=== PATIENT | female | born 1990 | race Caucasian/White ===

== ENCOUNTER 2016-11-01 10:29 | Emergency (ER) | payer MEDICAID, OTHER ==
[~2016-11-01] VITALS: Ht 152.4 cm; Wt 80.0 kg
[2016-11-01 10:31] VITALS: BP 110/77; PULSE 95; RESP 16; TEMP 97.8; O2SAT 98
[2016-11-01] MEDS ORDERED: CEFD300C PO (10:49)
--- NOTE | 2016-11-01 10:56 | PD ---
HPI Chief Complaint: ENT Complaint Time Seen by Provider: 10:49 Travel History International Travel<30 days: No Contact w/Intl Traveler<30days: No Traveled to known affect area: No History of Present Illness HPI Patient's 26-year-old female presenting with nasal congestion and facial pressure. Facial pain and pressure along the right and the right ear is occasionally painful. This begun on for about 1.5 weeks and she felt she was improving until this morning when it acutely worsened. She has nasal congestion with only intermittent thick yellow rhinorrhea. She denies sore throat. She denies neck pain, lymphadenopathy, fever or chills. She denies cough. She denies fever. She denies current . PFSH Past Medical History Arthritis: No Asthma: Yes Autoimmune Disease: No Anxiety: No Depression: Yes Heart Rhythm Problems: No Cancer: No Cardiovascular Problems: No High Cholesterol: Yes Chest Pain: No Congestive Heart Failure: No COPD: No Cerebrovascular Accident: No Diabetes: No Diminished Hearing: No Endocrine: No Gastrointestinal Disorders: Yes (IBS) GERD: No Glaucoma: No Genitourinary: Yes (UTI) Hepatitis: No Hiatal Hernia: No Hypertension: No Immune Disorder: No Kidney Stones: Yes Musculoskeletal: Yes Neurologic: Yes (HEADACHES) Psychiatric: Yes (DEPRESSION) Reproductive: Yes (EXCESSIVE BLEEDING/PAIN) Respiratory: Yes (ASTHMA) Migraines: No Renal Failure: No Seizures: No Sleep Apnea: No Thyroid Disease: No Ulcer: No ?: Not Menopausal: No : 2 Para: 1 Miscarriage: 0 : 0 Ovarian Cysts: Yes Past Surgical History Abdominal Surgery: Yes (EXPL LAPAROSCOPY) Cardiac Surgery: No Ear Surgery: No Endocrine Surgery: No Eye Surgery: No Genitourinary Surgery: Yes (URETERAL STENT PLACEMENT, STENT REMOVAL 2015, LITHOTRIPSY) Gynecologic Surgery: Yes (laproscopic exploratory on ovary,hysterectomy) Hysterectomy: Yes Joint Replacement: No Oral Surgery: No Pacemaker: No Thoracic Surgery: No Other Surgery: Yes Social History Alcohol Use: Yes Tobacco Use: Yes (10/14 ppd ) Substance Use: No Allergies-Medications (Allergen,Severity, Reaction): Coded Allergies: Erythromycin (Verified Allergy, Severe, EYE DROPS; EYE SWELLING, 11/01/16) Neomycin (Verified Allergy, Severe, EARS ITCHING, FLAKING, 11/01/16) Phenergan (Verified Allergy, Severe, HALLUCINATIONS WITH I.V. FORM, ) Amoxil (Verified Allergy, Intermediate, NAUSEA WITH ORAL FORM, 11/01/16) Uncoded Allergies: ADHESIVE TAPE (Allergy, Severe, RASH, REDNESS, 12/09/15) Reported Meds & Prescriptions Reported Meds & Active Scripts Active No Active Prescriptions or Reported Medications Review of Systems General / Constitutional: No: Fever, Chills HENT: Positive: Rhinitis, Rhinorrhea, Congestion, Earache, No: Headaches, Sore Throat, Neck Stiffness, Neck Pain, Masses, Ear Discharge Respiratory: No: Cough, Shortness of Breath Hematologic/Lymphatic: No: Lymph Node Enlargement Physical Exam Narrative GENERAL: Well-developed and well-nourished adult female in no acute distress. SKIN: Warm and dry. Good turgor without tenting. HEAD: Normocephalic and atraumatic. EYES: PERRL bilaterally, 5mm. EOMI bilaterally. No injection or icterus present. No proptosis. Lids without edema or erythema. ENT: Bilateral ear canals are non-edematous/non-erythematous without otorrhea. Bilateral TMs have intact landmarks and without distortion, perforation, air- fluid level or erythema. Nasal mucosa erythematous and edematous with thin yellow discharge, septum intact and midline. Significantly reduced right maxillary transillumination. Buccal mucosa pink and moist. Oropharynx free of erythema, tonsillar hypertrophy, masses, swelling, asymmetry and exudates. Uvula midline and airway patent. NECK: Supple, no meningeal signs. Trachea midline, no JVD. No cervical or facial lymphadenopathy. CARDIOVASCULAR: Regular rate and rhythm without murmurs, rubs, clicks or gallops. Radial pulses 2+ bilaterally. RESPIRATORY: Clear to auscultation bilaterally with symmetrical rise and fall, no distress or use of accessory muscles. MUSCULOSKELETAL: No gait disturbances. Patient freely moving all four extremities spontaneously. Extremities without clubbing, cyanosis, or edema. No obvious deformities. NEUROLOGIC: CN II-XII grossly intact. Awake and alert. Motor grossly within normal limits. Normal speech. PSYCHIATRIC: Appropriate mood and affect; insight and judgment normal. Data Data Last Documented VS Vital Signs Date Time Temp Pulse Resp B/P Pulse Ox O2 Delivery O2 Flow Rate FiO2 11/01/16 10:31 97.8 95 16 110/77 98 MDM Medical Decision Making Medical Screen Exam Complete: Yes Emergency Medical Condition: Yes Differential Diagnosis sinusitis vs rhinitis vs otitis media vs EUD Narrative Course Patient is a 26-year-old female with history and physical suggestive of an acute right maxillary sinusitis, likely bacterial. She is afebrile and nontoxic appearing. Patient has allergy to many macrolides and has taken a prescription for Levaquin for "a cold "in the last month. She has intolerance to amoxicillin due to stomach upset but no allergy. As such we'll prescribe Omnicef which should provide appropriate coverage and hopefully will be well- tolerated.See discharge paperwork for further instructions. The plan was discussed with the patient who acknowledged their understanding and agreement. Reinforced the follow-up with primary care is critically important. Patient instructed on emergent conditions that should prompt return to ED. Diagnosis Primary Impression: Right maxillary sinusitis Patient Instructions: General Instructions, Sinusitis (ED) Additional Instructions: Take medication as prescribed OTC Mucinex and decongestants as needed OTC Tylenol or Ibuprofen for fever and discomfort Drink lots of fluid to help clear mucous/drainage and stay hydrated Follow up with PCP in 2 days Return to the ED for any acute worsening of symptoms Med/Other Pt SpecificInfo: Prescription(s) given Scripts Cefdinir 300 Mg Ayn166 Mg PO BID #20 CAP Ref 0 Prov:Roxann Castaneda MD 11/01/16 Disposition: 01 DISCHARGE HOME Condition: Stable Sundar Hicks III Nov 01, 2016 10:56
== END 2016-11-01 11:44 | disposition home or self-care (01) ==
LOC: NEPB 10:29
DX: J32.0 Chronic maxillary sinusitis (principal); F17.200 Nicotine dependence, unspecified, uncomplicated
CPT/HCPCS: 99283

== ENCOUNTER 2017-10-03 10:16 | Emergency (ER) | payer OTHER, MEDICAID ==
[~2017-10-03] VITALS: Ht 152.4 cm; Wt 77.2 kg
[~2017-10-03 10:16] MED LIST: CEFD300C PO
[2017-10-03 10:18] VITALS: BP 124/82; PULSE 79; RESP 12; TEMP 98.4; O2SAT 98
--- NOTE | 2017-10-03 10:45 | PD ---
HPI Chief Complaint: Skin Problem Time Seen by Provider: 10:41 Travel History International Travel<30 days: No Contact w/Intl Traveler<30days: No Traveled to known affect area: No History of Present Illness HPI 27-year-old female presents to the ED for evaluation of 1 week history of tender reddened area under the left axilla. Gradual onset. The patient thinks that it may have started as an ingrown hair. She's been treating at home with warm compresses with no improvement of symptoms. States that the area has been draining a small amount of pus. She denies fevers, chills, nausea, vomiting, limitations to range of motion of the arm, history of MRSA. PFSH Past Medical History Arthritis: No Asthma: Yes Autoimmune Disease: No Anxiety: No Depression: Yes Heart Rhythm Problems: No Cancer: No Cardiovascular Problems: No High Cholesterol: Yes Chest Pain: No Congestive Heart Failure: No COPD: No Cerebrovascular Accident: No Diabetes: Yes Diminished Hearing: No Endocrine: No Gastrointestinal Disorders: Yes (IBS) GERD: No Glaucoma: No Genitourinary: Yes (UTI) Hepatitis: No Hiatal Hernia: No Hypertension: No Immune Disorder: No Kidney Stones: Yes Musculoskeletal: Yes Neurologic: Yes (HEADACHES) Psychiatric: Yes (DEPRESSION) Reproductive: Yes (EXCESSIVE BLEEDING/PAIN) Respiratory: Yes (ASTHMA) Migraines: No Renal Failure: No Seizures: No Sleep Apnea: No Thyroid Disease: No Ulcer: No Menopausal: No : 2 Para: 1 Miscarriage: 0 : 0 Ovarian Cysts: Yes Past Surgical History Abdominal Surgery: Yes (EXPL LAPAROSCOPY) Cardiac Surgery: No Ear Surgery: No Endocrine Surgery: No Eye Surgery: No Genitourinary Surgery: Yes (URETERAL STENT PLACEMENT, STENT REMOVAL 2014, LITHOTRIPSY) Gynecologic Surgery: Yes (laproscopic exploratory on ovary,hysterectomy) Hysterectomy: Yes Joint Replacement: No Oral Surgery: No Pacemaker: No Thoracic Surgery: No Other Surgery: Yes Social History Alcohol Use: Yes Tobacco Use: Yes (10/14 ppd ) Substance Use: No Allergies-Medications (Allergen,Severity, Reaction): Coded Allergies: erythromycin base (Unverified Allergy, Severe, EYE DROPS; EYE SWELLING, ) neomycin (Unverified Allergy, Severe, EARS ITCHING, FLAKING, 05/25/17) promethazine (Unverified Allergy, Severe, HALLUCINATIONS WITH I.V. FORM, ) amoxicillin (Unverified Allergy, Intermediate, NAUSEA WITH ORAL FORM, 05/25) Uncoded Allergies: ADHESIVE TAPE (Allergy, Severe, RASH, REDNESS, 12/09/15) Reported Meds & Prescriptions Reported Meds & Active Scripts Active Clindamycin (Clindamycin HCl) 150 Mg Cap 450 Mg PO Q6H 7 Days Cefdinir 300 Mg Cap 300 Mg PO BID Review of Systems Except as stated in HPI: all other systems reviewed are Neg Physical Exam Narrative GENERAL: Well-nourished, well-developed white female in no acute distress. SKIN: Focused skin assessment warm/dry. SKIN: There is an indurated area in the left axilla which measures about 1 cm in diameter. No fluctuance. No pointing. Small amount of purulent drainage. There is a zone of inflammation around it but no lymphangitis. HEAD: Normocephalic. EYES: No scleral icterus. No injection or drainage. NECK: Supple, trachea midline. No JVD or lymphadenopathy. CARDIOVASCULAR: Regular rate and rhythm without murmurs, gallops, or rubs. RESPIRATORY: Breath sounds equal bilaterally. No accessory muscle use. GASTROINTESTINAL: Abdomen soft, non-tender, nondistended. MUSCULOSKELETAL: No cyanosis, or edema. BACK: Nontender without obvious deformity. No CVA tenderness. Data Data Last Documented VS Vital Signs Date Time Temp Pulse Resp B/P (MAP) Pulse Ox O2 Delivery O2 Flow Rate FiO2 10/03/17 10:59 10/03/17 10:18 98.4 79 12 98 Orders Orders Ed Discharge Order (10/03/17 10:53) Abscess Culture And Gram Stain (10/03/17 12:22) [facility] Medical Decision Making Medical Screen Exam Complete: Yes Emergency Medical Condition: Yes Differential Diagnosis Folliculitis says furuncle versus abscess versus cellulitis versus other Narrative Course 27-year-old female presents to the ED for evaluation of 1 week history of tender reddened area under the left axilla. The patient thinks that it may have started as an ingrown hair. States that the area has been draining a small amount of pus. She denies fevers, chills, nausea, vomiting, limitations to range of motion of the arm, history of MRSA. Patient afebrile on presentation. Physical exam consistent with folliculitis, possible early abscess. No fluctuance noted. She is prescribed clindamycin 450 mg 3 times a day 7 days. She is instructed to continue with warm compresses and provided a brief course of anti-inflammatories. We discussed reasons to return to the ED. She indicated understanding of the discharge instructions. She is stable and discharged home. Diagnosis Primary Impression: Furuncle of axilla Qualified Codes: L02.422 - Furuncle of left axilla Referrals: [facility] Patient Instructions: Furunculosis and Carbunculosis (ED), General Instructions Additional Instructions: Continue with application of moist compresses a few times a day. DO NOT SQUEEZE THE AREA. OTC pain medications as described on the label, as needed for pain. Take antibiotics as they're prescribed until every pill is gone. Follow-up with the speaker wirer if symptoms do not improve. Return to the ED for worsening symptoms or any urgent or emergent medical condition. Med/Other Pt SpecificInfo: Prescription(s) given Scripts Clindamycin (Clindamycin) 150 Mg Cap 450 MG PO Q6H for Infection for 7 Days, #84 CAP 0 Refills Prov: Sriram Williamson MD 10/03/17 Disposition: 01 DISCHARGE HOME Condition: Stable Melissa Carter Oct 03, 2017 10:45
[2017-10-03] MEDS ORDERED: CLIN150C14 PO (10:51)
== END 2017-10-03 11:01 | disposition home or self-care (01) ==
LOC: NEPD 10:16
DX: L02.422 Furuncle of left axilla (principal); F17.200 Nicotine dependence, unspecified, uncomplicated
CPT/HCPCS: 99283

== ENCOUNTER 2017-10-26 13:41 | Emergency (ER) | payer OTHER, MEDICAID ==
[~2017-10-26 13:41] MED LIST changes: +CLIN150C14 PO
[2017-10-26 13:42] VITALS: BP 117/84; PULSE 76; RESP 16; TEMP 98.7; O2SAT 99
[2017-10-26] MEDS ORDERED: PERM5CRE TOPICAL (16:05)
--- NOTE | 2017-10-26 16:06 | PD ---
HPI Chief Complaint: Skin Problem Time Seen by Provider: 15:05 Travel History International Travel<30 days: No Contact w/Intl Traveler<30days: No Traveled to known affect area: No History of Present Illness HPI This is a 27-year-old female who presents to the emergency department with 1 day of rash on her legs, constant, moderate severity, itchy, with no associated fevers or chills. She also reports that 3 weeks ago she had an abscess under her left armpit which drained pus. She was treated by her primary care physician. She no longer has any pus draining be continues to feel painful lump in her armpit. PFSH Past Medical History Arthritis: No Asthma: Yes Autoimmune Disease: No Anxiety: No Depression: Yes Heart Rhythm Problems: No Cancer: No Cardiovascular Problems: No High Cholesterol: Yes Chest Pain: No Congestive Heart Failure: No COPD: No Cerebrovascular Accident: No Diabetes: Yes Diminished Hearing: No Endocrine: No Gastrointestinal Disorders: Yes (IBS) GERD: No Glaucoma: No Genitourinary: Yes (UTI) Hepatitis: No Hiatal Hernia: No Hypertension: No Immune Disorder: No Kidney Stones: Yes Musculoskeletal: Yes Neurologic: Yes (HEADACHES) Psychiatric: Yes (DEPRESSION) Reproductive: Yes (EXCESSIVE BLEEDING/PAIN) Respiratory: Yes (ASTHMA) Migraines: No Renal Failure: No Seizures: No Sleep Apnea: No Thyroid Disease: No Ulcer: No ?: Not Menopausal: No : 2 Para: 1 Miscarriage: 0 : 0 Ovarian Cysts: Yes Past Surgical History Abdominal Surgery: Yes (EXPL LAPAROSCOPY) Cardiac Surgery: No Ear Surgery: No Endocrine Surgery: No Eye Surgery: No Genitourinary Surgery: Yes (URETERAL STENT PLACEMENT, STENT REMOVAL 2014, LITHOTRIPSY) Gynecologic Surgery: Yes (laproscopic exploratory on ovary,hysterectomy) Hysterectomy: Yes Joint Replacement: No Oral Surgery: No Pacemaker: No Thoracic Surgery: No Other Surgery: Yes Social History Alcohol Use: Yes Tobacco Use: Yes (10/14 ppd ) Substance Use: No Allergies-Medications (Allergen,Severity, Reaction): Coded Allergies: erythromycin base (Unverified Allergy, Severe, EYE DROPS; EYE SWELLING, ) neomycin (Unverified Allergy, Severe, EARS ITCHING, FLAKING, 10/26/17) promethazine (Unverified Allergy, Severe, HALLUCINATIONS WITH I.V. FORM, ) amoxicillin (Unverified Allergy, Intermediate, NAUSEA WITH ORAL FORM, 10/26) Uncoded Allergies: ADHESIVE TAPE (Allergy, Severe, RASH, REDNESS, 12/09/15) Reported Meds & Prescriptions Reported Meds & Active Scripts Active Clindamycin (Clindamycin HCl) 150 Mg Cap 450 Mg PO Q6H 7 Days Cefdinir 300 Mg Cap 300 Mg PO BID Review of Systems Except as stated in HPI: all other systems reviewed are Neg Physical Exam Narrative GENERAL: Well-appearing, no acute distress, nontoxic SKIN: SKIN: Tender lymph node in the left axilla with no surrounding erythema or induration. Erythematous papular rash in linear distribution on her lower extremities and on the toes. HEAD: Atraumatic. Normocephalic. ENT: No nasal bleeding or discharge. Moist mucous membranes MUSCULOSKELETAL: No obvious deformities. No clubbing. No cyanosis. No edema. NEUROLOGICAL: Awake and alert. No obvious cranial nerve deficits. Motor grossly within normal limits. Normal speech. PSYCHIATRIC: Appropriate mood and affect; insight and judgment normal. Data Data Last Documented VS Vital Signs Date Time Temp Pulse Resp B/P (MAP) Pulse Ox O2 Delivery O2 Flow Rate FiO2 10/26/17 13:42 98.7 76 16 117/84 (95) 99 MDM Medical Decision Making Medical Screen Exam Complete: Yes Emergency Medical Condition: Yes Differential Diagnosis Scabies, bedbugs, shingles, abscess, cellulitis Narrative Course This is a 27-year-old female who presents to the emergency department with an itchy rash on her legs as well as swelling in her left axilla. Her axillary swelling appears to be a lymph node which I suspect is reactive from her recent abscess but I don't appreciate any fluctuance or induration at this time and I don't think it warrants antibiotic therapy. Her rash on her lower extremities is concerning for scabies. She'll be treated with permethrin and was instructed to wash all of her bed sheets in hot water. Otherwise she is nontoxic appearing and is appropriate for outpatient management. Diagnosis Primary Impression: Bug bites Qualified Codes: W57.XXXA - Bitten or stung by nonvenomous insect and other nonvenomous arthropods, initial encounter Additional Impression: Lymphadenopathy Patient Instructions: General Instructions Additional Instructions: If you develops fever, chills, increasing redness or swelling of your arm pit return to the emergency room. Follow-up with your primary care physician if you 're not improving in 1 week. Med/Other Pt SpecificInfo: Prescription(s) given Scripts Permethrin Topical 5% (Permethrin Topical 5%) 5% Cream 1 APPLIC TOPICAL ONCE for Scabies, #1 TUBE 0 Refills Prov: Roxann Castaneda MD 10/26/17 Disposition: 01 DISCHARGE HOME Condition: Stable Roxann Castaneda MD Oct 26, 2017 16:06
== END 2017-10-26 16:20 | disposition home or self-care (01) ==
LOC: NEPA 13:41
DX: S80.861A Insect bite (nonvenomous), right lower leg, initial encounter (principal); S80.862A Insect bite (nonvenomous), left lower leg, initial encounter; R59.1 Generalized enlarged lymph nodes; W57.XXXA Bitten or stung by nonvenomous insect and other nonvenomous arthropods, initial encounter
CPT/HCPCS: 99283

== ENCOUNTER 2017-12-10 16:34 | Emergency (ER) | payer MEDICAID, OTHER ==
[~2017-12-10] VITALS: Ht 152.4 cm; Wt 74.0 kg
[~2017-12-10 16:34] MED LIST changes: +PERM5CRE TOPICAL
[2017-12-10 16:42] VITALS: BP 118/67; PULSE 89; RESP 18; TEMP 97.5; O2SAT 98
[2017-12-10] MEDS ORDERED: AMBI10TA PO (16:51)
[2017-12-10] MEDS ORDERED: BUSP5TAB PO (16:51)
[2017-12-10] MEDS ORDERED: SODIUM CHLOR 0.9% 1000 ML INJ 1,000 ML IV SCH (16:54)
[2017-12-10] MEDS ORDERED: SODIUM CHLORIDE 0.9% FLUSH 10 ML FLUSH IV FLUSH PRN (17:00)
[2017-12-10] MEDS ORDERED: KETOROLAC TROMETHAMINE 30 MG/ML (IVP) VIAL IVP ONE (17:00)
[2017-12-10 17:13] LABS: AUTOMATED NEUTROPHIL # 14.5 TH/MM3 (1.8-7.7); BASOPHIL # 0.3 TH/MM3 (0-0.2); BASOPHIL % 1.3 % (0.0-2.0); EOSINOPHIL # 0.3 TH/MM3 (0-0.4); EOSINOPHIL % 1.3 % (0.0-4.0); HEMATOCRIT 47.2 % (35.0-46.0); HEMOGLOBIN 15.6 GM/DL (11.6-15.3); LYMPH % 22.6 % (9.0-44.0); LYMPHOCYTE # 4.8 TH/MM3 (1.0-4.8); MEAN CELL VOLUME 85.3 FL (80.0-100.0); MEAN CORPUSCULAR HEMOGLOBIN 28.3 PG (27.0-34.0); MEAN CORPUSCULAR HGB CONC 33.1 % (32.0-36.0); MEAN PLATELET VOLUME 9.7 FL (7.0-11.0); MONO % 5.9 % (0.0-8.0); MONOCYTE # 1.2 TH/MM3 (0-0.9); NEUT % 68.9 % (16.0-70.0); PLATELET COUNT 283 TH/MM3 (150-450); RED BLOOD COUNT 5.53 MIL/MM3 (4.00-5.30); RED CELL DISTRIBUTION WIDTH 12.7 % (11.6-17.2); WHITE BLOOD COUNT 21.1 TH/MM3 (4.0-11.0)
[2017-12-10 17:17] LABS: BLOOD, URINE SMALL (NEG); GLUCOSE,URINE NEG (NEG); KETONE, URINE NEG (NEG); NITRITE,URINE NEG (NEG); PH, URINE 5.5 (5.0-8.5); URINE COLOR YELLOW (YELLW/STRAW); URINE LEUKOCYTE ESTERASE NEG (NEG)
[2017-12-10 17:22] LABS: CHLORIDE 103 MEQ/L (98-107); SODIUM (NA) 136 MEQ/L (136-145)
[2017-12-10 17:26] LABS: ALBUMIN 3.6 GM/DL (3.4-5.0); BICARBONATE 24.3 MEQ/L (21.0-32.0); CALCIUM 9.3 MG/DL (8.5-10.1); GLUCOSE,RANDOM 130 MG/DL (74-106)
[2017-12-10 17:27] LABS: BLOOD UREA NITROGEN 10 MG/DL (7-18)
[2017-12-10 17:29] LABS: ALT (GPT) 44 U/L (10-53); AST (GOT) 32 U/L (15-37); CREATININE 0.79 MG/DL (0.50-1.00); GLOMERULAR FILTRATION RATE 86 ML/MIN (>89)
[2017-12-10 17:31] LABS: TOTAL BILIRUBIN ADULT 0.1 MG/DL (0.2-1.0); TOTAL PROTEIN 8.1 GM/DL (6.4-8.2)
[2017-12-10 17:31] LABS: BILIRUBIN, URINE NEG (NEG)
[2017-12-10 17:32] LABS: ALKALINE PHOSPHATASE 133 U/L (45-117)
--- NOTE | 2017-12-10 17:35 | PD ---
HPI Chief Complaint: Abdominal Pain Time Seen by Provider: 16:48 Travel History International Travel<30 days: No Contact w/Intl Traveler<30days: No Traveled to known affect area: No History of Present Illness HPI Patient was seen and examined in the presence of a nurse at all times This is a 27-year-old female who presents for abdominal pain. She states about half an hour ago, she developed pain in the suprapubic region. No associated fever, chills, nausea, vomiting, diarrhea. No urinary urgency, frequency, dysuria, hematuria. She has had a partial hysterectomy in the past. She states that she has had similar pain multiple times in the past. She has had exploratory laparotomies. She states that it is unclear what is causing her pain. No prior treatment today for the pain. Onset gradual. Aggravated by touch. Patient denies any vaginal discharge or bleeding. She states that she had unprotected sex about 3 weeks ago with a new partner. PFSH Past Medical History Arthritis: No Asthma: Yes Autoimmune Disease: No Anxiety: Yes Depression: Yes Heart Rhythm Problems: No Cancer: No Cardiovascular Problems: No High Cholesterol: Yes Chest Pain: No Congestive Heart Failure: No COPD: No Cerebrovascular Accident: No Diabetes: Yes Patient Takes Glucophage: No Diminished Hearing: No Endocrine: No Gastrointestinal Disorders: Yes (IBS) GERD: No Glaucoma: No Genitourinary: Yes (UTI) Hepatitis: No Hiatal Hernia: No Hypertension: No Immune Disorder: No Kidney Stones: Yes Medical other: No Musculoskeletal: Yes Neurologic: Yes (HEADACHES) Psychiatric: Yes (DEPRESSION) Reproductive: Yes (EXCESSIVE BLEEDING/PAIN) Respiratory: Yes (ASTHMA) Immunizations Current: Yes Migraines: No Renal Failure: No Seizures: No Sleep Apnea: No Thyroid Disease: No Ulcer: No ?: Not Menopausal: No : 2 Para: 1 Miscarriage: 0 : 0 Ovarian Cysts: Yes Past Surgical History Abdominal Surgery: Yes (EXPL LAPAROSCOPY) Cardiac Surgery: No Ear Surgery: No Endocrine Surgery: No Eye Surgery: No Genitourinary Surgery: Yes (URETERAL STENT PLACEMENT, STENT REMOVAL 2015, LITHOTRIPSY) Gynecologic Surgery: Yes (laproscopic exploratory on ovary) Hysterectomy: Yes (PARTIAL) Joint Replacement: No Oral Surgery: No Pacemaker: No Thoracic Surgery: No Other Surgery: Yes Social History Alcohol Use: Yes (COUPLE TIMES PER MONTH) Tobacco Use: Yes (1/2 PPD) Substance Use: No Allergies-Medications (Allergen,Severity, Reaction): Coded Allergies: erythromycin base (Unverified Allergy, Severe, EYE DROPS; EYE SWELLING, 12/10/17) neomycin (Unverified Allergy, Severe, EARS ITCHING, FLAKING, 12/10/17) promethazine (Unverified Allergy, Severe, HALLUCINATIONS WITH I.V. FORM, ) amoxicillin (Unverified Allergy, Intermediate, NAUSEA WITH ORAL FORM, ) Uncoded Allergies: ADHESIVE TAPE (Allergy, Severe, RASH, REDNESS, 12/09/15) Reported Meds & Prescriptions Reported Meds & Active Scripts Active Naprosyn (Naproxen) 500 Mg Tab 500 Mg PO BID PRN [place] (Hydrocodone-Acetaminophen) 5 Mg-325 Mg Tab 1 Tab PO Q6H PRN Reported Buspirone (Buspirone HCl) 5 Mg Tab 5 Mg PO BID Ambien (Zolpidem Tartrate) 10 Mg Tab 10 Mg PO HS PRN Review of Systems Except as stated in HPI: all other systems reviewed are Neg Physical Exam Narrative GENERAL: Alert, well nourished, well appearing patient resting on the bed. Vital Signs reviewed SKIN: Focused skin assessment warm/dry. HEAD: Atraumatic. Normocephalic. EYES: Pupils equal and round. No scleral icterus. No injection or drainage. ENT: No nasal bleeding or discharge. Mucous membranes pink and moist. Posterior oropharynx without erythema, edema, exudate. Uvula is midline NECK: Trachea midline. No JVD. Spontaneous, painless full range of motion with no meningismus CARDIOVASCULAR: Regular rate and rhythm. No murmur appreciated. Extremities warm and well perfused with bounding peripheral pulses RESPIRATORY: No accessory muscle use. Clear to auscultation. Breath sounds equal bilaterally. Breathing easily and speaking in full sentences GASTROINTESTINAL: Abdomen soft, tender in suprapubic region, nondistended. Normal bowel sounds. No rigid, rebound Pelvic exam performed in presence of nurse Shavon: Speculum and bimanual exams were performed. There is a small amount of white discharge, likely physiologic , in vaginal vault. Positive right adnexal tenderness without right adnexal mass appreciated. No left adnexal tenderness. MUSCULOSKELETAL: No obvious deformities. No clubbing. No cyanosis. No edema. Compartments are soft NEUROLOGICAL: Awake and alert. No obvious cranial nerve deficits. Motor grossly within normal limits. Normal speech. Sensation intact. Normal gait Data Data Last Documented VS Vital Signs Date Time Temp Pulse Resp B/P (MAP) Pulse Ox O2 Delivery O2 Flow Rate FiO2 12/10/17 20:10 98.6 86 20 119/86 (97) 98 12/10/17 18:55 Room Air Orders Orders Urinalysis - C+S If Indicated (12/10/17 16:42) Complete Blood Count With Diff (12/10/17 16:54) Comprehensive Metabolic Panel (12/10/17 16:54) Lipase (12/10/17 16:54) Ct Abd/Pel W/O Iv Contrast (12/10/17 16:54) Iv Access Insert/Monitor (12/10/17 16:54) Sodium Chlor 0.9% 1000 Ml Inj (Ns 1000 M (12/10/17 16:54) Sodium Chloride 0.9% Flush (Ns Flush) (12/10/17 17:00) Ketorolac Inj (Toradol Inj) (12/10/17 17:00) Gc And Chlamydia Pcr (12/10/17 17:50) Wet Prep Profile (12/10/17 17:50) Azithromycin Powd Pack (Zithromax Powd P (12/10/17 18:15) Ceftriaxone Inj (Rocephin Inj) (12/10/17 18:15) Lidocaine 1% Inj (50 Ml) (Xylocaine 1% I (12/10/17 18:15) Morphine Inj (Morphine Inj) (12/10/17 18:30) Ondansetron Inj (Zofran Inj) (12/10/17 18:30) Lidocaine Pf 1% Inj (Xylocaine-Mpf 1% In (12/10/17 18:44) Azithromycin Powd Pack (Zithromax Powd P (12/10/17 18:45) Us Pelvis Comp W Dop Transvag (12/10/17 17:50) Ed Discharge Order (12/10/17 19:30) Labs Laboratory Tests Test 12/10/17 17:00 12/10/17 17:05 12/10/17 18:10 Urine Color YELLOW Urine Turbidity CLOUDY Urine pH 5.5 Urine Specific [place] GREATER/EQUAL 1.030 Urine Protein TRACE mg/dL Urine Glucose (UA) NEG mg/dL Urine Ketones NEG mg/dL Urine Occult Blood SMALL Urine Nitrite NEG Urine Bilirubin NEG Urine Urobilinogen 0.2 MG/DL Urine Leukocyte Esterase NEG Urine RBC 4-9 /hpf Urine WBC 3-5 /hpf Urine Squamous Epithelial Cells 0-5 /hpf Urine Calcium Oxalate Crystals FEW /hpf Urine Uric Acid Crystals MANY /hpf Microscopic Urinalysis Comment CULT NOT INDICATED White Blood Count 21.1 TH/MM3 Red Blood Count 5.53 MIL/MM3 Hemoglobin 15.6 GM/DL Hematocrit 47.2 % Mean Corpuscular Volume 85.3 FL Mean Corpuscular Hemoglobin 28.3 PG Mean Corpuscular Hemoglobin Concent 33.1 % Red Cell Distribution Width 12.7 % Platelet Count 283 TH/MM3 Mean Platelet Volume 9.7 FL Neutrophils (%) (Auto) 68.9 % Lymphocytes (%) (Auto) 22.6 % Monocytes (%) (Auto) 5.9 % Eosinophils (%) (Auto) 1.3 % Basophils (%) (Auto) 1.3 % Neutrophils # (Auto) 14.5 TH/MM3 Lymphocytes # (Auto) 4.8 TH/MM3 Monocytes # (Auto) 1.2 TH/MM3 Eosinophils # (Auto) 0.3 TH/MM3 Basophils # (Auto) 0.3 TH/MM3 CBC Comment DIFF FINAL Differential Comment Blood Urea Nitrogen 10 MG/DL Creatinine 0.79 MG/DL Random Glucose 130 MG/DL Total Protein 8.1 GM/DL Albumin 3.6 GM/DL Calcium Level 9.3 MG/DL Alkaline Phosphatase 133 U/L Aspartate Amino Transf (AST/SGOT) 32 U/L Alanine Aminotransferase (ALT/SGPT) 44 U/L Total Bilirubin 0.1 MG/DL Sodium Level 136 MEQ/L Potassium Level 4.2 MEQ/L Chloride Level 103 MEQ/L Carbon Dioxide Level 24.3 MEQ/L Anion Gap 9 MEQ/L Estimat Glomerular Filtration Rate 86 ML/MIN Lipase 102 U/L Clue Cells (Wet Prep) NONE SEEN Vaginal Trichomonas (Wet Prep) NONE SEEN Vaginal Yeast (Wet Prep) NONE SEEN Chlamydia trachomatis DNA (PCR) NOT DETECTED Neisseria gonorrhoeae DNA (PCR) NOT DETECTED MDM Medical Decision Making Medical Screen Exam Complete: Yes Emergency Medical Condition: Yes Medical Record Reviewed: Yes Interpretation(s) Pelvic US: Complex cystic lesion within the right ovary measuring 2.4 x 1.8 x 2.7 cm. Nonvisualization of the left ovary transabdominally. Some free fluid within the cul-de-sac. Status post hysterectomy. CT A/P: 1. Bilateral nonobstructing renal calculi. 2. Small amount of free fluid in the pelvis adjacent to the right ovary. 3. Ovarian cyst Laboratory Tests Test 12/10/17 17:00 12/10/17 17:05 12/10/17 18:10 Urine Color YELLOW Urine Turbidity CLOUDY Urine pH 5.5 Urine Specific [place] GREATER/EQUAL 1.030 Urine Protein TRACE mg/dL Urine Glucose (UA) NEG mg/dL Urine Ketones NEG mg/dL Urine Occult Blood SMALL Urine Nitrite NEG Urine Bilirubin NEG Urine Urobilinogen 0.2 MG/DL Urine Leukocyte Esterase NEG Urine RBC 4-9 /hpf Urine WBC 3-5 /hpf Urine Squamous Epithelial Cells 0-5 /hpf Urine Calcium Oxalate Crystals FEW /hpf Urine Uric Acid Crystals MANY /hpf Microscopic Urinalysis Comment CULT NOT INDICATED White Blood Count 21.1 TH/MM3 Red Blood Count 5.53 MIL/MM3 Hemoglobin 15.6 GM/DL Hematocrit 47.2 % Mean Corpuscular Volume 85.3 FL Mean Corpuscular Hemoglobin 28.3 PG Mean Corpuscular Hemoglobin Concent 33.1 % Red Cell Distribution Width 12.7 % Platelet Count 283 TH/MM3 Mean Platelet Volume 9.7 FL Neutrophils (%) (Auto) 68.9 % Lymphocytes (%) (Auto) 22.6 % Monocytes (%) (Auto) 5.9 % Eosinophils (%) (Auto) 1.3 % Basophils (%) (Auto) 1.3 % Neutrophils # (Auto) 14.5 TH/MM3 Lymphocytes # (Auto) 4.8 TH/MM3 Monocytes # (Auto) 1.2 TH/MM3 Eosinophils # (Auto) 0.3 TH/MM3 Basophils # (Auto) 0.3 TH/MM3 CBC Comment DIFF FINAL Differential Comment Blood Urea Nitrogen 10 MG/DL Creatinine 0.79 MG/DL Random Glucose 130 MG/DL Total Protein 8.1 GM/DL Albumin 3.6 GM/DL Calcium Level 9.3 MG/DL Alkaline Phosphatase 133 U/L Aspartate Amino Transf (AST/SGOT) 32 U/L Alanine Aminotransferase (ALT/SGPT) 44 U/L Total Bilirubin 0.1 MG/DL Sodium Level 136 MEQ/L Potassium Level 4.2 MEQ/L Chloride Level 103 MEQ/L Carbon Dioxide Level 24.3 MEQ/L Anion Gap 9 MEQ/L Estimat Glomerular Filtration Rate 86 ML/MIN Lipase 102 U/L Clue Cells (Wet Prep) NONE SEEN Vaginal Trichomonas (Wet Prep) NONE SEEN Vaginal Yeast (Wet Prep) NONE SEEN Differential Diagnosis Ovarian cyst, ovarian torsion, PID, UTI, nephrolithiasis Narrative Course IV access was established. Labs, imaging were performed. Pelvic exam was performed, patient has right adnexal tenderness. No CMT. Patient was given Rocephin and azithromycin to cover gonorrhea and chlamydia. She states that she has taken azithromycin with no difficulty despite her being allergic to erythromycin. Patient was given Toradol and Morphine with improvement in pain. Patient's work up revealed right ovarian cyst. I feel this is the most likely cause of her pain, rather than PID. Patient states she often has an elevated WBC count. She is afebrile. I reviewed the results of the workup with the patient. Plan for discharge with Naprosyn, [place], supportive care and close outpatient follow-up with her [place] planning manager in 3 days. Patient understands the importance of close outpatient follow-up. She understands she may require further testing and treatment as an outpatient. She understands strict return indications. She is comfortable with this plan and eager to go home. 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 Use [place] as needed for severe pain. No alcohol or driving after this medication. Use warm compresses as directed. Follow-up with [facility] planning manager in 3 days for recheck. You may require further testing and treatment as an outpatient. Med/Other Pt SpecificInfo: Prescription(s) given Scripts Naproxen (Naprosyn) 500 Mg Tab 500 MG PO BID Y for PAIN LESS THAN 5 ON SCALE, #10 TAB 0 Refills Prov: Julia Hernandez MD 12/10/17 Hydrocodone-Acetaminophen ([place]) 5 Mg-325 Mg Tab 1 TAB PO Q6H Y for PAIN GREATER THAN 5, #12 TAB 0 Refills Prov: Julia Hernandez MD 12/10/17 Disposition: 01 DISCHARGE HOME Condition: Stable Julia Hernandez MD Dec 10, 2017 17:35
--- NOTE | 2017-12-10 17:36 | RADRPT ---
EXAM DATE/TIME: 12/10/2017 17:22 [facility] COMPARISON: CT ABDOMEN & PELVIS W CONTRAST, March 04, 2016, 14:38. INDICATIONS : Lower abdominal pain. Nausea. ORAL CONTRAST: No oral contrast ingested. RADIATION DOSE: 17.27 CTDIvol (mGy) MEDICAL HISTORY : Renal calculi. Diabetes mellitus type 2. Inflammatory bowel disease.Asthma. SURGICAL HISTORY : Hysterectomy. Lithotripsy. ENCOUNTER: Initial ACUITY: 1 day PAIN SCALE: 8/10 LOCATION: Bilateral lower quadrant TECHNIQUE: Volumetric scanning of the abdomen and pelvis was performed. Using automated exposure control and ad justment of the mA and/or kV according to patient size, radiation dose was kept as low as reasonably achievable to obtain optimal diagnostic quality images. DICOM format image data is available electro nically for review and comparison. FINDINGS: Lung bases are clear. The osseous structures are intact. Visualized portions of liver demonstrate mil d hepatic steatosis. Spleen, pancreas, adrenals are unremarkable. Punctate nonobstructing left lower pole renal calculus. There are multiple nonobstructing right renal calculi including a 2.4 mm lower p ole calculus on image 53, 5.9 mm calculus at the midpole right kidney on image 47 and a 2 mm right up per pole stone on image 39. No hydronephrosis or ureteral stones. Urinary bladder is unremarkable. Th e patient is status post hysterectomy. There is a small amount of fluid just above the urinary bladde r. No evidence of bowel obstruction. The appendix is normal. No adenopathy or aneurysm. Left ovary un remarkable. Right ovarian cyst suspected measuring 2.9 cm. CONCLUSION: 1. Bilateral nonobstructing renal calculi. 2. Small amount of free fluid in the pelvis adjacent to the right ovary. 3. Ovarian cyst Heriberto Henry MD on December 10, 2017 at 17:33 Board Certified Radiologist. This report was verified electronically.
[2017-12-10 17:37] LABS: URIC ACID CRYSTALS, URINE MANY /hpf
[2017-12-10 17:38] LABS: SQUAMOUS EPITHELIAL CELL URINE 0-5 /hpf (0-5)
[2017-12-10 17:40] LABS: CALCIUM OXALATE CRYSTALS,URINE FEW /hpf
[2017-12-10] MEDS ORDERED: LIDOCAINE HCL 1% 50 ML VIAL IM ONE (18:15)
[2017-12-10] MEDS ORDERED: AZITHROMYCIN PWD FOR SUSP 1 GM PACKET PO ONE ×2 (18:15→18:45)
[2017-12-10] MEDS ORDERED: cefTRIAXone 250 MG VIAL IM ONE (18:15)
[2017-12-10] MEDS ORDERED: MORPHINE SULFATE 4 MG/ML INJ IV PUSH ONE (18:30)
[2017-12-10] MEDS ORDERED: ONDANSETRON HCL 4 MG/2 ML VIAL IV PUSH ONE (18:30)
[2017-12-10] MEDS ORDERED: LIDOCAINE HCL 1% PF 30 ML VIAL ONE (18:44)
[2017-12-10 18:55] VITALS: BP 110/76; PULSE 84; RESP 18; O2SAT 99
[2017-12-10 19:09] VITALS: BP 117/87; PULSE 87; RESP 20; O2SAT 99
--- NOTE | 2017-12-10 19:16 | RADRPT ---
EXAM DATE/TIME: 12/10/2017 18:19 [facility] COMPARISON: No previous studies available for comparison. INDICATIONS : Right pelvic pain for 1 day. MEDICAL HISTORY : Hypercholesterolemia. Glasses. Asthma. Ovarian cysts. Urinary tract infection. Kidney stones. Sco liosis. Diabetes. Depression. Anxiety. Nausea. Excessive bleeding/pain. SURGICAL HISTORY : Hysterectomy. Exploratory laparoscopy. Ureteral stent. Lithotripsy. ENCOUNTER: Initial ACUITY: 1 day PAIN SCORE: 8/10 LOCATION: Bilateral pelvis MEASUREMENTS: LEFT OVARY: 4.0 x 2.0 x 2.7 cm UTERUS: Surgically absent RIGHT OVARY: 4.2 x 2.3 x 2.9 cm FINDINGS: UTERUS: Status post hysterectomy. RIGHT OVARY: There is a complex cystic lesion arising from the right ovary measuring 2.4 x 1.8 x 2.7 cm. No ovaria n torsion is noted. LEFT OVARY: Left ovary is not visualized transabdominally. MISCELLANEOUS: Some free fluid is noted within the cul-de-sac. CONCLUSION: Complex cystic lesion within the right ovary measuring 2.4 x 1.8 x 2.7 cm. Nonvisualization of the le ft ovary transabdominally. Some free fluid within the cul-de-sac. Status post hysterectomy. Sriram Bishop MD on December 10, 2017 at 19:12 Board Certified Radiologist. This report was verified electronically.
[2017-12-10] MEDS ORDERED: NAPR500 PO (19:26)
[2017-12-10] MEDS ORDERED: NORC5TAB PO (19:26)
[2017-12-10 20:10] VITALS: BP 119/86; TEMP 98.6
== END 2017-12-10 20:33 | disposition home or self-care (01) ==
LOC: PHED 16:34
DX: N83.201 Unspecified ovarian cyst, right side (principal); F17.200 Nicotine dependence, unspecified, uncomplicated
CPT/HCPCS: 74176; 76830; 76856; 80053; 81001; 83690; 85025; 87210; 87491; 87591; 93975; 96361; 96372; 96374; 96375; 99285; J0696; J1885; J2270; J2405; J7030

== ENCOUNTER 2018-02-23 04:35 | Emergency (ER) | payer OTHER ==
[~2018-02-23] VITALS: Ht 152.4 cm; Wt 74.9 kg
[~2018-02-23 04:35] MED LIST changes: +AMBI10TA PO; +BUSP5TAB PO; -CEFD300C PO; -CLIN150C14 PO; +NAPR500 PO; +NORC5TAB PO; -PERM5CRE TOPICAL
[2018-02-23 04:43] VITALS: BP 120/86; PULSE 98; RESP 18; TEMP 97.8; O2SAT 98
[2018-02-23] MEDS ORDERED: RESP: ALBUTEROL 2.5 MG/IPRATROPIUM 0.5 MG NEB (SCH) NEB ONE (05:15)
[2018-02-23] MEDS ORDERED: predniSONE 50 MG TAB PO ONE (05:15)
--- NOTE | 2018-02-23 05:15 | PD ---
HPI Chief Complaint: Cold / Flu Symptoms Time Seen by Provider: 05:08 Travel History International Travel<30 days: No Contact w/Intl Traveler<30days: No Traveled to known affect area: No History of Present Illness HPI 28-year-old female presents to the emergency department by private transportation for complaint of shortness of breath and chest tightness with heaviness since yesterday. Patient states history of asthma with recurrent episodes of bronchitis. Symptoms remind her of bronchitis. No fever has had cough productive of yellow-green sputum. Patient denies status post hysterectomy in 2015. No other concerns or complaints at this time. Patient does not have an inhaler. Patient does smoke cigarettes. PFSH Past Medical History Narrative Medical Asthma anxiety depression diabetes dyslipidemia hysterectomy; tobacco use; nursing notes reviewed Arthritis: No Asthma: Yes Autoimmune Disease: No Anxiety: Yes Depression: Yes Heart Rhythm Problems: No Cancer: No Cardiovascular Problems: No High Cholesterol: Yes Chest Pain: No Congestive Heart Failure: No COPD: No Cerebrovascular Accident: No Diabetes: Yes Patient Takes Glucophage: No Diminished Hearing: No Endocrine: No Gastrointestinal Disorders: Yes (IBS) GERD: No Glaucoma: No Genitourinary: Yes (UTI) Hepatitis: No Hiatal Hernia: No Hypertension: No Immune Disorder: No Kidney Stones: Yes Musculoskeletal: Yes Neurologic: Yes (HEADACHES) Psychiatric: Yes (DEPRESSION) Reproductive: Yes (EXCESSIVE BLEEDING/PAIN) Respiratory: Yes (ASTHMA) Immunizations Current: Yes Migraines: No Renal Failure: No Seizures: No Sleep Apnea: No Thyroid Disease: No Ulcer: No Influenza Vaccination: No ?: Not LMP: Nov 2015 Menopausal: No : 2 Para: 1 Miscarriage: 0 : 0 Ovarian Cysts: Yes Past Surgical History Abdominal Surgery: Yes (EXP LAP) Cardiac Surgery: No Ear Surgery: No Endocrine Surgery: No Eye Surgery: No Genitourinary Surgery: Yes (URETERAL STENT PLACEMENT, STENT REMOVAL 2014, LITHOTRIPSY) Gynecologic Surgery: Yes (laproscopic exploratory on ovary) Hysterectomy: Yes (PARTIAL) Joint Replacement: No Oral Surgery: No Pacemaker: No Thoracic Surgery: No Other Surgery: Yes Social History Alcohol Use: Yes (COUPLE TIMES PER MONTH) Tobacco Use: Yes (STATED 02/23/18: "2 PACKS PER WEEK") Substance Use: No Allergies-Medications (Allergen,Severity, Reaction): Coded Allergies: erythromycin base (Unverified Allergy, Severe, EYE DROPS; EYE SWELLING, ) neomycin (Unverified Allergy, Severe, EARS ITCHING, FLAKING, 02/23/18) promethazine (Unverified Allergy, Severe, HALLUCINATIONS WITH I.V. FORM, ) amoxicillin (Unverified Allergy, Intermediate, NAUSEA WITH ORAL FORM, 02/23) Uncoded Allergies: ADHESIVE TAPE (Allergy, Severe, RASH, REDNESS, 12/09/15) Reported Meds & Prescriptions Reported Meds & Active Scripts Active Reported Buspirone (Buspirone HCl) 5 Mg Tab 5 Mg PO BID Ambien (Zolpidem Tartrate) 10 Mg Tab 10 Mg PO HS PRN Review of Systems Except as stated in HPI: all other systems reviewed are Neg Physical Exam Narrative GENERAL: Well-developed well-nourished female no acute distress no respiratory distress; room air O2 saturation 98% SKIN: Warm and dry. HEAD: Normocephalic. EYES: No scleral icterus. No injection or drainage. NECK: Supple, trachea midline. No JVD or lymphadenopathy. CARDIOVASCULAR: Regular rate and rhythm without murmurs, gallops, or rubs. RESPIRATORY: Breath sounds equal bilaterally. No accessory muscle use. GASTROINTESTINAL: Abdomen soft, non-tender, nondistended. MUSCULOSKELETAL: No cyanosis, or edema. BACK: Nontender without obvious deformity. No CVA tenderness. Data Data Last Documented VS Vital Signs Date Time Temp Pulse Resp B/P (MAP) Pulse Ox O2 Delivery O2 Flow Rate FiO2 02/23/18 05:51 79 18 104/73 (83) 98 Room Air 02/23/18 05:20 8.00 21 02/23/18 04:43 97.8 Orders Orders Chest, Pa & Lat (02/23/18 ) Albuterol-Ipratropium Neb (Duoneb Neb) (02/23/18 05:15) Prednisone (Deltasone) (02/23/18 05:15) Blood Glucose (02/23/18 05:15) Cephalexin (Keflex) (02/23/18 06:00) Ed Discharge Order (02/23/18 05:57) MDM Medical Decision Making Medical Screen Exam Complete: Yes Emergency Medical Condition: Yes Medical Record Reviewed: Yes Interpretation(s) cxr: No lobar infiltrate Differential Diagnosis Bronchitis, asthma, pneumonia, pneumothorax, CHF, musculoskeletal pain, atypical chest pain, ACS Narrative Course Imaging study ordered random glucose 92 patient given one-time dose of prednisone After updraft treatment lung sounds improved and patient is clinically/ symptomatically improved X-ray reveals no lobar infiltrate Patient is stable for outpatient management and follow-up with her primary care provider Diagnosis Primary Impression: Bronchitis Referrals: Primary Care Physician call for appointment Patient Instructions: General Instructions Departure Forms: Tests/Procedures, Work Release Special Instructions: no work x 1 day Additional Instructions: Increase fluid hydration Take acetaminophen as needed for fever 100.4F or greater Complete steroid taper Use inhaler as needed for wheezing or shortness of breath Complete course of antibiotic as prescribed Return to the emergency department for any concerns or change in condition No work 1 day Med/Other Pt SpecificInfo: Prescription(s) given Scripts Ipratropium-Albuterol Inh (Combivent Respimat Inh) 20-100 Usp/Act Aero 1 PUFF INH QID for Asthma Management, #1 INHALER 0 Refills Prov: Adela Martines MD 02/23/18 Methylprednisolone Dosepak (Medrol Dosepak) 4 Mg Dspk 4 MG PO DIRECTED, #1 DSPK 0 Refills Per Pharmacist direction Prov: Adela Martines MD 02/23/18 Cephalexin (Keflex) 500 Mg Capsule 500 MG PO Q6H for Infection for 7 Days, #28 CAP 0 Refills Prov: Adela Martines MD 02/23/18 Disposition: 01 DISCHARGE HOME Condition: Stable Adela Martines MD February 23, 2018 05:15
[2018-02-23 05:51] VITALS: BP 104/73; PULSE 79; RESP 18; O2SAT 98
--- NOTE | 2018-02-23 05:59 | RADRPT ---
EXAM DATE/TIME: 02/23/2018 05:38 [facility] COMPARISON: No previous studies available for comparison. INDICATIONS : Cough and short of breath. MEDICAL HISTORY : Asthma. SURGICAL HISTORY : None. ENCOUNTER: Initial ACUITY: 1 day PAIN SCORE: 0/10 LOCATION: Bilateral chest FINDINGS: PA and lateral views of the chest demonstrate the lungs to be symmetrically aerated without evidence of mass, infiltrate or effusion. The cardiomediastinal contours are unremarkable. Osseous structure s are intact. Mild scoliotic curvature. CONCLUSION: Normal examination. Hung Lopez Jr., MD on February 23, 2018 at 5:56 Board Certified Radiologist. This report was verified electronically.
[2018-02-23] MEDS ORDERED: CEPHALEXIN MONOHYDRATE 500 MG CAP PO ONE (06:00)
[2018-02-23] MEDS ORDERED: MEDR4PAK PO (06:02)
[2018-02-23] MEDS ORDERED: IPRAAER INH (06:02)
[2018-02-23] MEDS ORDERED: CEPH-460 PO (06:02)
== END 2018-02-23 06:12 | disposition home or self-care (01) ==
LOC: PHED 04:35
DX: J40 Bronchitis, not specified as acute or chronic (principal); J45.909 Unspecified asthma, uncomplicated; F41.9 Anxiety disorder, unspecified; F32.9 Major depressive disorder, single episode, unspecified; E78.00 Pure hypercholesterolemia, unspecified; E11.9 Type 2 diabetes mellitus without complications; F17.210 Nicotine dependence, cigarettes, uncomplicated; Z87.19 Personal history of other diseases of the digestive system; Z87.442 Personal history of urinary calculi
CPT/HCPCS: 71046; 94664; 99283; J7512

== ENCOUNTER 2018-03-07 11:59 | Emergency (ER) | payer OTHER ==
[~2018-03-07 11:59] MED LIST changes: +CEPH-460 PO; +IPRAAER INH; +MEDR4PAK PO; -NAPR500 PO; -NORC5TAB PO
[2018-03-07 12:01] VITALS: BP 121/77; PULSE 108; RESP 16; TEMP 98.1; O2SAT 96
--- NOTE | 2018-03-07 13:21 | PD ---
HPI Chief Complaint: Cold / Flu Symptoms Time Seen by Provider: 13:08 Travel History International Travel<30 days: No Contact w/Intl Traveler<30days: No Traveled to known affect area: No History of Present Illness HPI This 28-year-old female says she has been sick for 3 weeks. She has had a cough productive of yellow and green phlegm. She was seen here on the and at that time she had a negative chest x-ray. She was given prescription for Keflex which did not help. She had asthma when she was a child but has not had it for some time. She smokes 2 packs cigarettes a week. PFSH Past Medical History Arthritis: No Asthma: Yes Autoimmune Disease: No Anxiety: Yes Depression: Yes Heart Rhythm Problems: No Cancer: No Cardiovascular Problems: No High Cholesterol: Yes Chest Pain: No Congestive Heart Failure: No COPD: No Cerebrovascular Accident: No Diabetes: Yes Diminished Hearing: No Endocrine: No Gastrointestinal Disorders: Yes (IBS) GERD: No Glaucoma: No Genitourinary: Yes (UTI) Hepatitis: No Hiatal Hernia: No Hypertension: No Immune Disorder: No Kidney Stones: Yes Musculoskeletal: Yes Neurologic: Yes (HEADACHES) Psychiatric: Yes (DEPRESSION) Reproductive: Yes (EXCESSIVE BLEEDING/PAIN) Respiratory: Yes (ASTHMA) Immunizations Current: Yes Migraines: No Renal Failure: No Seizures: No Sleep Apnea: No Thyroid Disease: No Ulcer: No ?: Not Menopausal: No : 2 Para: 1 Miscarriage: 0 : 0 Ovarian Cysts: Yes Past Surgical History Abdominal Surgery: Yes (EXP LAP) Cardiac Surgery: No Ear Surgery: No Endocrine Surgery: No Eye Surgery: No Genitourinary Surgery: Yes (URETERAL STENT PLACEMENT, STENT REMOVAL 2015, LITHOTRIPSY) Gynecologic Surgery: Yes (laproscopic exploratory on ovary) Hysterectomy: Yes Joint Replacement: No Oral Surgery: No Pacemaker: No Thoracic Surgery: No Other Surgery: Yes Social History Alcohol Use: Yes (COUPLE TIMES PER MONTH) Tobacco Use: Yes (STATED 02/23/18: "2 PACKS PER WEEK") Substance Use: No Allergies-Medications (Allergen,Severity, Reaction): Coded Allergies: erythromycin base (Verified Allergy, Severe, EYE DROPS; EYE SWELLING, 03/07) neomycin (Verified Allergy, Severe, EARS ITCHING, FLAKING, 03/07/18) promethazine (Verified Allergy, Severe, HALLUCINATIONS WITH I.V. FORM, ) amoxicillin (Verified Allergy, Intermediate, NAUSEA WITH ORAL FORM, ) Uncoded Allergies: ADHESIVE TAPE (Allergy, Severe, RASH, REDNESS, 12/09/15) Reported Meds & Prescriptions Reported Meds & Active Scripts Active Combivent Respimat Inh (Ipratropium-Albuterol Inh) 20-100 Jail/Act Aero 1 Puff INH QID Medrol Dosepak (Methylprednisolone) 4 Mg Dspk 4 Mg PO DIRECTED Per Pharmacist direction Keflex (Cephalexin) 500 Mg Capsule 500 Mg PO Q6H 7 Days Reported Buspirone (Buspirone HCl) 5 Mg Tab 5 Mg PO BID Ambien (Zolpidem Tartrate) 10 Mg Tab 10 Mg PO HS PRN Review of Systems General / Constitutional: No: Fever, Chills Eyes: No: Diploplia, Blurred Vision HENT: No: Headaches Cardiovascular: No: Chest Pain or Discomfort Respiratory: Positive: Cough, No: Wheezing, Hemoptysis Gastrointestinal: No: Vomiting, Diarrhea Genitourinary: No: Urgency, Frequency Musculoskeletal: No: Myalgias, Arthralgias Skin: No Rash Endocrine: No: Cold Intolerance Hematologic/Lymphatic: No: Easy Bruising Physical Exam Narrative GENERAL: Well-developed female SKIN: Focused skin assessment warm/dry. HEAD: Atraumatic. Normocephalic. EYES: Pupils equal and round. No scleral icterus. No injection or drainage. ENT: No nasal bleeding or discharge. Mucous membranes pink and moist. NECK: Trachea midline. No JVD. CARDIOVASCULAR: Regular rate and rhythm. No murmur appreciated. RESPIRATORY: No accessory muscle use. Clear to auscultation. Breath sounds equal bilaterally. GASTROINTESTINAL: Abdomen soft, non-tender, nondistended. Hepatic and splenic margins not palpable. MUSCULOSKELETAL: No obvious deformities. No clubbing. No cyanosis. No edema. NEUROLOGICAL: Awake and alert. No obvious cranial nerve deficits. Motor grossly within normal limits. Normal speech. PSYCHIATRIC: Appropriate mood and affect; insight and judgment normal. Data Data Last Documented VS Vital Signs Date Time Temp Pulse Resp B/P (MAP) Pulse Ox O2 Delivery O2 Flow Rate FiO2 03/07/18 12:01 98.1 108 16 121/77 (92) 96 MDM Medical Decision Making Medical Screen Exam Complete: Yes Emergency Medical Condition: Yes Medical Record Reviewed: Yes Differential Diagnosis Differential includes asthma, bronchitis, allergic bronchitis Narrative Course She has had a course of Keflex which did not provide any relief. X-ray has been negative. I do not hear any wheezing. Will be suspect suspect that a lot of this may be allergy and I recommended he take Zyrtec daily. Also encouraged her to stop smoking. She is quite anxious for a quick cure but I do not think a repeat course of antibiotics would be helpful. She does have diet-controlled diabetes and I do not think steroids will be helpful Diagnosis Primary Impression: Bronchitis Additional Instructions: Take Zyrtec daily Disposition: DISCHARGE HOME Condition: Stable Yoandy Montgomery MD March 07, 2018 13:21
== END 2018-03-07 13:48 | disposition home or self-care (01) ==
LOC: PHED 11:59
DX: J45.909 Unspecified asthma, uncomplicated (principal); F41.9 Anxiety disorder, unspecified; F32.9 Major depressive disorder, single episode, unspecified; E78.00 Pure hypercholesterolemia, unspecified; E11.9 Type 2 diabetes mellitus without complications; K58.9 Irritable bowel syndrome, unspecified; F17.210 Nicotine dependence, cigarettes, uncomplicated
CPT/HCPCS: 99282